=== PATIENT | male | born 1990 ===

== ENCOUNTER 2018-07-14 21:00 | Emergency (ER) | payer SELFPAY ==
[2018-07-14 21:11] VITALS: BP 142/91; PULSE 87; RESP 20; TEMP 98.2; O2SAT 96
[2018-07-14] MEDS ORDERED: cefTRIAXone (Rocephin) 250 mg Inj IM STA (21:22)
--- NOTE | 2018-07-14 21:26 | C.PDOC ---
History Of Present Illness 28 y/o male presents to ED complaining of dysuria for the past week but no discharge. States he is sexually active and intermittently uses condoms, and admits he has more than one partner. Patient also complains of fatigue and heada heath but denies any fever, rash, or abdominal pain. Patient is uncircumcised. <Jerson Owens - Last Filed: 07/17/18 13:24> <Santy Calderon - Last Filed: 07/15/18 05:29> History Per: Patient History/Exam Limitations: no limitations Onset/Duration Of Symptoms: Days Current Symptoms Are (Timing): Still Present <Jerson Owens - Last Filed: 07/17/18 13:24> Time Seen by Provider: 07/14/18 21:12 Chief Complaint (Nursing): Male Genitourinary Past Medical History Vital Signs: Last Vital Signs Temp 98.2 F 07/14/18 21:06 Pulse 87 07/14/18 21:06 Resp 20 07/14/18 21:06 BP 142/91 H 07/14/18 21:06 Pulse Ox 96 07/14/18 21:26 <Santy Calderon - Last Filed: 07/15/18 05:29> Reviewed: Historical Data, Nursing Documentation, Vital Signs Vital Signs: Last Vital Signs Temp 98.2 F 07/14/18 21:06 Pulse 87 07/14/18 21:06 Resp 20 07/14/18 21:06 BP 142/91 H 07/14/18 21:06 Pulse Ox 96 07/14/18 21:06 - Medical History PMH: Asthma (childhood asthma) Family History: States: No Known Family Hx - Social History Hx Alcohol Use: No Hx Substance Use: No - Immunization History Hx Tetanus Toxoid Vaccination: No Hx Influenza Vaccination: No Hx Pneumococcal Vaccination: No <Jerson Owens - Last Filed: 07/17/18 13:24> Review Of Systems Except As Marked, All Systems Reviewed And Found Negative. Constitutional: Negative for: Fever Gastrointestinal: Negative for: Abdominal Pain Genitourinary: Positive for: Dysuria. Negative for: Penile Discharge, Rash <Jerson Owens - Last Filed: 07/17/18 13:24> Physical Exam - Physical Exam Appears: Non-toxic, No Acute Distress Skin: Warm, Dry Head: Atraumatic, Normacephalic Eye(s): bilateral: Normal Inspection Oral Mucosa: Moist Neck: Supple Gastrointestinal/Abdominal: Soft, No Tenderness Extremity: Bilateral: Normal ROM Neurological/Psych: Oriented x3, Normal Speech Gait: Steady <Jerson Owens - Last Filed: 07/17/18 13:24> ED Course And Treatment - Laboratory Results Result Diagrams: 07/14/18 21:50 07/14/18 21:35 Lab Results: Urine Color Colorless (YELLOW) 07/14/18 21:38 Urine Clarity Clear (Clear) 07/14/18 21:38 Urine pH 7.0 (5.0-8.0) 07/14/18 21:38 Ur Specific [place] 1.001 (1.003-1.030) L 07/14/18 21:38 Urine Protein Negative mg/dL (NEGATIVE) 07/14/18 21:38 Urine Glucose (UA) Normal mg/dL (Normal) 07/14/18 21:38 Urine Ketones Negative mg/dL (NEGATIVE) 07/14/18 21:38 Urine Blood Negative (NEGATIVE) 07/14/18 21:38 Urine Nitrate Negative (NEGATIVE) 07/14/18 21:38 Urine Bilirubin Negative (NEGATIVE) 07/14/18 21:38 Urine Urobilinogen Normal mg/dL (0.2-1.0) 07/14/18 21:38 Ur Leukocyte Esterase Trace Norah/uL (Negative) 07/14/18 21:38 Urine WBC (Auto) 1 /hpf (0-5) 07/14/18 21:38 Urine RBC (Auto) < 1 /hpf (0-3) 07/14/18 21:38 <Santy Calderon - Last Filed: 07/15/18 05:29> - Laboratory Results Result Diagrams: 07/14/18 21:50 07/14/18 21:35 O2 Sat by Pulse Oximetry: 96 (RA) Pulse Ox Interpretation: Normal <Jerson Owens - Last Filed: 07/17/18 13:24> Medical Decision Making Medical Decision Making: UA did not show signs of urinary tract infection. <Santy Calderon - Last Filed: 07/15/18 05:29> Medical Decision Making: Plan: --Labs --Chlamydia/GC Test --Urine Culture --UA --Rocephin 250 mg IM --Zithromax PO <Jerson Owens - Last Filed: 07/17/18 13:24> Disposition Counseled Patient/Family Regarding: Diagnosis, Need For Followup - Disposition Disposition Time: 22:04 <Santy Calderon - Last Filed: 07/15/18 05:29> <Jerson Owens - Last Filed: 07/17/18 13:24> - Disposition [facility]errals: [facility] [Outside] Disposition: HOME/ ROUTINE Condition: STABLE Instructions: Urethritis (DC) Forms: [facility] (Yakut), General Discharge Instructions - Clinical Impression Clinical Impression: Urethritis - Scribe Statement The provider has reviewed the documentation as recorded by the Caren Momin Provider Attestation: All medical record entries made by the Jacyibjany were at my direction and personally dictated by me. I have reviewed the chart and agree that the record accurately reflects my personal performance of the history, physical exam, medical decision making, and the department course for this patient. I have also personally directed, reviewed, and agree with the discharge instructions and disposition. <Jerson Owens - Last Filed: 07/17/18 13:24>
[2018-07-14 21:49] LABS: URINE BILIRUBIN NEGATIVE (NEGATIVE); URINE BLOOD NEGATIVE (NEGATIVE); URINE CLARITY Clear (Clear); URINE COLOR Colorless (YELLOW); URINE GLUCOSE (UA) NORMAL (Normal); URINE LEUKOCYTE ESTERASE TRACE Leu/uL (Negative); URINE PROTEIN NEGATIVE (NEGATIVE); URINE UROBILINOGEN NORMAL mg/dL (0.2-1.0)
[2018-07-14 21:53] LABS: BASO % 0.6 % (0.0-2.0); EOS # 0.1 K/uL (0.0-0.7); EOS % 1.8 % (0.0-4.0); HEMOGLOBIN 15.4 g/dL (12.0-18.0); LYMPH # 2.7 K/uL (1.0-4.3); LYMPH % 38.5 % (20.0-40.0); MEAN CELL VOLUME 96.9 fL (80.0-94.0); MEAN CORPUSCULAR HEMOGLOBIN 33.5 pg (27.0-31.0); MEAN CORPUSCULAR HGB CONC 34.6 g/dL (33.0-37.0); MEAN PLATELET VOLUME 9.5 fL (7.2-11.7); MONO # 0.6 K/uL (0.0-0.8); MONO % 8.1 % (0.0-10.0); NEUT # 3.6 K/uL (1.8-7.0); NRBC % 0.1 % (0.0-2.0); RBC 4.61 Mil/uL (4.40-5.90); RED CELL DISTRIBUTION WIDTH 13.6 % (11.5-14.5)
[2018-07-14 22:13] LABS: ALB/GLOB RATIO 1.6 (1.0-2.1); ALBUMIN 4.5 g/dL (3.5-5.0); ALT/SGPT 7 U/L (21-72); AST/SGOT 44 U/L (17-59); BLOOD UREA NITROGEN 15 mg/dL (9-20); CALCIUM 9.4 mg/dl (8.6-10.4); GFR NON-AFRICAN AMERICAN > 60
[2018-07-14 23:00] LABS: HEPATITIS C ANTIBODY NEGATIVE (NEGATIVE)
== END 2018-07-14 22:20 | disposition home or self-care (01) ==
LOC: C.ER 21:00
DX: N34.2 Other urethritis (principal)
CPT/HCPCS: 36415; 80053; 81001; 85025; 86592; 86703; 86706; 86803; 87086; 87491; 87591; 96372; 99284; J0696